=== PATIENT | female | born 1960 | race Hispanic/Latino ===

== ENCOUNTER 2022-05-06 15:43 | Emergency (ER) | payer BC ==
--- OUTSIDE RECORDS SUMMARY | 2022-05-06 15:47 | XMS REPORT | Continuity of Care Document ---
:1960 Author Organization [facility] t Address [address] [place] [address] Dr. Lemus. [address] [place] [address] Care Team Providers Name Role Phone Aung PAN, Melyssa Scott Primary Care Physician [phone] ESTHER RODRIGUEZ Attending Clinician Unavailable Aung PAN, Melyssa Scott Attending Clinician [phone] MARQUIS VILLA Attending Clinician Unavailable Vera Caldwell MA Attending Clinician Unavailable Lang Ventura MD Attending Clinician [phone] Yunior Hartmann MD Attending Clinician [phone] Lala Hatch MA Attending Clinician Unavailable Payers Payer Name Policy Type Policy Number Effective Date Expiration Date S analilia [id number] PPO [id number] 2018 00:00:00 Problems Condition Condition Condition Status Onset Resolution Last Treating Co mments Source Name Details Category Date Date Treatment Clinician Date Type 2 Type 2 Disease Active [facility]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 Family History Family Member Diagnosis Comments Start Date Stop Date Source Natural father Aneurysm [facility] Natural father COPD [facility] Natural father SENIOR TAX SPECIALIST Cancer [facility] Natural father Mitral valve [facility] Natural mother Diabetes [facility] Natural mother SENIOR TAX SPECIALIST Cancer [facility] Paternal grandfather Cancer [facility] Natural sister [facility] Social History Social Habit Start Date Stop Date Quantity Comments Source Exposure to Not sure [facility] SARS-CoV-2 Hospital (event) Alcohol intake 2021-06-26 2021-06-26 Current [facility] 00:00:00 00:00:00 non-drinker of Hospital alcohol (finding) Tobacco use and 2020-02-22 2020-02-22 Smokeless tobacco [facility] exposure 00:00:00 00:00:00 non-user Hospital Sex Assigned At [birth year] F [facility] 00:00:00 00:00:00 Hospital Smoking Status Start Date Stop Date Source Never smoked tobacco [facility] Medications Ordered Filled Start Stop Current Ordering Indication Dosage Frequency Signature Comments Components Source Medication Medication Date Date Medication? Clinician (SIG) Name Name metFORMIN Yes [id number] 1000mg Q.5D Take 2 Methodi XR 2-[address] (GLUCOPHAGE 00:00: (1,000 mg H ospita -XR) 500 mg 00 total) by l 24 hr mouth 2 tablet (two) times a day. levothyroxi Yes 112ug QD Take 1 Met hodi ne 1-[address] (SYNTHROID) 00:00: (112 mcg Ho spita 112 mcg 00 total) by l tablet mouth every morning. topiramate Yes 25mg QD Take 25 mg M ethodi (TOPAMAX) 1-[address] 25 MG 15:18: daily. Hospita tablet 32 l escitalopra Yes 5mg QD Take 5 mg M ethodi m (LEXAPRO) 1-[address] 5 MG tablet 15:17: daily. Hosp luis 38 l OLANZapine Yes 2.5mg QD Take 2.5 Me thodi (ZyPREXA) 1-[address] 2.5 MG 15:17: mouth Hospita tablet 38 nightly. l metFORMIN 2020-06- No [id number] TAKE 2 Methodi XR 2-15 02-[address] (GLUCOPHAGE 00:00: 00:00 MOUTH Hosp luis -XR) 500 mg 00 :00 TWICE A l 24 hr DAY tablet levothyroxi 2020-06- No TAKE 1 Met hodi ne 2-15 -[address] (SYNTHROID) 00:00: 00:00 MOUTH Hosp luis 112 mcg 00 :00 EVERY l tablet MORNING sodium,pota 2020-06 Yes [id number] Drink 1 Methodi ssium,mag 1-[address] sulfates 00:00: directed Hospi ta (Suprep 00 for dose 1 l Bowel Prep and 1 Kit) bottle as 17.5-3.13-1 directed .6 gram for dose recon soln 2. rosuvastati Yes [id number] 20mg QD Take 1 Methodi n (Crestor) 02-27 tablet (20 st 20 mg 00:00: mg total) Hospita tablet 00 by mouth l nightly. metFORMIN 2020- No [id number] 1000mg Q.5D Take 2 Methodi XR -27 12-[address] (GLUCOPHAGE 00:00: 00:00 (1,000 mg Hospita -XR) 500 mg 00 :00 total) by l 24 hr mouth 2 tablet (two) times a day. levothyroxi 2020- No 112ug QD Take 1 Me christophodi ne 02-27 12-[address] (SYNTHROID) 00:00: 00:00 (112 mcg H ospita 112 mcg 00 :00 total) by l tablet mouth every morning. levothyroxi Yes 125ug QD Take 1 Met donniei ne 8-[address] (SYNTHROID) 00:00: (125 mcg Ho spita 125 mcg 00 total) by l tablet mouth every morning. levothyroxi 2020- No 125ug QD Take 1 Me thodi ne - 08-[address] (SYNTHROID) 00:00: 00:00 (125 mcg H ospita 125 mcg 00 :00 total) by l tablet mouth every morning. escitalopra Yes 5mg QD Take 5 mg M ethodi m (LEXAPRO) 12-[address] 5 MG tablet 19:51: daily. Hosp luis 49 l OLANZapine Yes 2.5mg QD Take 2.5 Me thodi (ZyPREXA) 7-[address] 2.5 MG 19:51: mouth Hospita tablet 49 nightly. l cyanocobala Yes Take by Met lore eric, [address] vitamin 19:51: 1000mcg Hospita B-12, 49 drops l (Vitamin daily B-12) 1,000 mcg/mL drops benzonatate 2020- No [id number] 100mg Q.[id number] Take 1 Methodi (Tessalon 12-01 08- [id number] capsule st Perles) 100 00:00: 04:59 3D (100 mg Ho spita MG capsule 00 :00 total) by l mouth 3 (three) times a day as needed for cough for up to 30 days. rosuvastati Yes [id number] 20mg QD Take 1 Methodi n (Crestor) 6-23 tablet (20 st 20 mg 00:00: mg total) Hospita tablet 00 by mouth l nightly. metFORMIN Yes [id number] 1000mg QD Take 2 Methodi XR 5-[address] (GLUCOPHAGE 00:00: (1,000 mg H ospita -XR) 500 mg 00 total) by l 24 hr mouth tablet daily with dinner. metFORMIN 2020- No [id number] 1000mg QD Take 2 Methodi XR 5-20 05-[address] (GLUCOPHAGE 00:00: 00:00 (1,000 mg Hospita -XR) 500 mg 00 :00 total) by l 24 hr mouth tablet daily with dinner. metFORMIN 2020- No [id number] 500mg QD Take 1 Methodi XR 2-22 05-[address] (GLUCOPHAGE 00:00: 00:00 (500 mg Ho spita -XR) 500 mg 00 :00 total) by l 24 hr mouth tablet daily with breakfast. rosuvastati 2020- No [id number] 20mg QD Take 1 Methodi n (Crestor) 2-19 06-23 tablet (20 s t 20 mg 00:00: 00:00 mg total) Hospit a tablet 00 :00 by mouth l nightly. metFORMIN 202 [id number] 500mg QD Take 1 Methodi XR 07-[address] (GLUCOPHAGE 00:00: 00:00 (500 mg Ho spita -XR) 500 mg 00 :00 total) by l 24 hr mouth tablet daily with breakfast. levothyroxi 2019-06 125ug QD Take 1 Me thodi ne 2- 08-[address] (SYNTHROID) 00:00: 00:00 (125 mcg H ospita 125 mcg 00 :00 total) by l tablet mouth every morning. SITagliptin 2019-06 100mg QD Take 1 Me thodi (JANUVIA) 06-[address] 100 MG 00:00: 00:00 (100 mg Hospita tablet 00 :00 total) by l mouth daily. levothyroxi 112ug QD Take 1 Me thodi ne 02-21 12-[address] (SYNTHROID) 00:00: 00:00 (112 mcg H ospita 112 mcg 00 :00 total) by l tablet mouth every morning. metFORMIN No 500mg QD Take 1 Meth monica XR 02-[address] (GLUCOPHAGE 00:00: 00:00 (500 mg Ho spita -XR) 500 mg 00 :00 total) by l 24 hr mouth tablet daily with dinner. levothyroxi 2015-06- No TAKE 1 Met hodi ne 06-[address] (SYNTHROID, 00:00: 00:00 MOUTH Hosp luis LEVOXYL) 00 :00 EVERY DAY l 125 mcg AT 6AM tablet cabergoline 2015-06- No TAKE 1/2 M ethodi (DOSTINEX) 0-04 02-[address] 0.5 mg 00:00: 00:00 MOUTH Hospita tablet 00 :00 TWICE A l WEEK (SATURDAY AND SATURDAY) lithium 2015-06 Yes 900mg QD Take 900 Metho di (LITHOBID) 0-[address] 300 MG CR 00:00: mouth Hospita tablet 00 every l evening. lithium 2015-06 Yes 900mg QD Take 900 Metho di (LITHOBID) 0-[address] 300 MG CR 00:00: mouth Hospita tablet 00 every l evening. lamoTRIgine 2015-06- No 200mg QD Take 200 Methodi (LaMICtal) 003 09-[address] 200 MG 00:00: 00:00 mouth once Hosp luis tablet 00 :00 daily. l Immunizations Ordered Immunization Filled Immunization Date Status Commen ts Source Name Name ODIN WADSWORTHID-19 MRNA 2021-04-03 Completed [facility] VACCINATION 00:00:00 [facility] FLUCELVAX QUAD PF 2021-02-[address] 00:00:00 [facility] Zoster Vaccine 2020-11-15 Completed [facility] Recombinant 00:00:00 [facility] Zoster Vaccine 2020-09-15 Completed [facility] Recombinant 00:00:00 [facility] PFIZER COVID-19 MRNA 2020-08-25 Completed [facility] VACCINATION 00:00:00 [facility] PFIZER COVID-19 MRNA 2020-08-25 Completed [facility] VACCINATION 00:00:00 [facility] PFIZER COVID-19 MRNA 2020-08-04 Completed [facility] VACCINATION 00:00:00 [facility] PFIZER COVID-19 MRNA 2020-08-04 Completed [facility] VACCINATION 00:00:00 [facility] FLUCELVAX QUAD PF 2020-02-[address] 00:00:00 [facility] Tdap 2020-02-19 Completed [facility] 00:00:00 [facility] FLUCELVAX QUAD PF 2020-02-[address] 00:00:00 [facility] Tdap 2020-02-19 Completed [facility] 00:00:00 [facility] Vital Signs Vital Name Observation Time Observation Value Comments Source Systolic blood 2021-06-26 21:16:00 105 mm[Hg] Method ist [facility] pressure Diastolic blood 2021-06-26 21:16:00 63 mm[Hg] [facility] pressure Heart rate 2021-06-26 21:16:00 71 /min [facility] Body temperature 2021-06-26 21:16:00 37 Macy [facility] Respiratory rate 2021-06-26 21:16:00 20 /min [facility] Body height 2021-06-26 21:16:00 161.3 cm [facility] Body weight 2021-06-26 21:16:00 88.451 kg [facility] BMI 2021-06-26 21:16:00 34.00 kg/m2 [facility] Oxygen saturation in 2021-06-26 21:16:00 98 /min [facility] Arterial blood by Pulse oximetry Body height 2021-02-10 15:10:00 161.3 cm [facility] Body weight 2021-02-10 15:10:00 90.266 kg [facility] BMI 2021-02-10 15:10:00 34.70 kg/m2 [facility] Systolic blood 2021-02-08 13:55:00 116 mm[Hg] [facility] pressure Diastolic blood 2021-02-08 13:55:00 64 mm[Hg] [facility] pressure Heart rate 2021-02-08 13:55:00 99 /min [facility] Body temperature 2021-02-08 13:55:00 37.06 [facility] Oxygen saturation in 2021-02-08 13:55:00 72 /min [facility] Arterial blood by Pulse oximetry Respiratory rate 2020-10-20 19:08:00 18 /min [facility] Procedures Procedure Date / Time Performing Clinician Source Performed THYROID STIMULATING 2021-06-26 22:05:00 [facility] HORMONE Scott BASIC METABOLIC PANEL 2021-06-26 22:05:00 [facility] Scott HEMOGLOBIN A1C 2021-06-26 22:05:00 [facility] Scott LITHIUM LEVEL 2021-06-26 22:05:00 [facility] Scott CT CARDIAC CALCIUM SCORE 2021-02-16 18:57:00 [facility] Scott CT ABDOMEN PELVIS W 2021-02-10 15:02:00 [facility] CONTRAST Scott URINE CULTURE 2021-02-08 14:30:00 [facility] Scott C-REACTIVE PROTEIN 2021-02-08 14:30:00 [facility] Scott CBC WITH PLATELET AND 2021-02-08 14:30:00 [facility] DIFFERENTIAL Scott COMPREHENSIVE METABOLIC 2021-02-08 14:30:00 [facility] PANEL Scott URINALYSIS, AUTOMATED 2021-02-08 14:30:00 [facility] WITH MICROSCOPY Scott MICROSCOPIC EXAMINATION 2021-02-08 14:30:00 [facility] Scott POC URINALYSIS DIPSTICK 2021-02-08 14:25:00 [facility] Scott ECG 12-LEAD 2020-10-20 18:52:20 [facility] Scott HEMOGLOBIN A1C 2020-07-22 20:54:00 [facility] Scott BASIC METABOLIC PANEL 2020-07-22 20:54:00 [facility] Scott THYROID STIMULATING 2020-07-22 20:54:00 [facility] HORMONE Scott T4, FREE 2020-07-22 20:54:00 [facility] Scott LITHIUM LEVEL 2020-07-22 20:54:00 [facility] Scott THYROID STIMULATING 2020-05-11 14:40:00 [facility] HORMONE Scott ECG 12-LEAD 2020-02-22 04:23:10 [facility] CBC WITH PLATELET AND 2020-02-19 16:51:00 [facility] DIFFERENTIAL Scott COMPREHENSIVE METABOLIC 2020-02-19 16:51:00 [facility] PANEL Scott LIPID PANEL 2020-02-19 16:51:00 [facility] Scott URINALYSIS, AUTOMATED 2020-02-19 16:51:00 [facility] WITH MICROSCOPY Scott THYROID STIMULATING 2020-02-19 16:51:00 [facility] HORMONE Scott T4, FREE 2020-02-19 16:51:00 [facility] Scott T3, FREE 2020-02-19 16:51:00 [facility] Scott FERRITIN LEVEL 2020-02-19 16:51:00 [facility] Scott TOTAL IRON BINDING 2020-02-19 16:51:00 Melyssa Horan [facility] HEMOGLOBIN A1C 2020-02-19 16:51:00 [place] [facility] MICROSCOPIC EXAMINATION 2020-02-19 16:51:00 [place] [facility] Plan of Care Planned Activity Planned Date Details Comments Source Future Scheduled 2022-04-07 HEPATITIS B VACCINES Met [facility] Test 09:57:13 (1 of 3 - 3-dose series) [code = HEPATITIS B VACCINES (1 of 3 - 3-dose series)] Future Scheduled 2022-04-07 Pneumococcal Vaccine: [facility] Test 09:57:13 Pediatrics (0 to 5 Years) and At-Risk Patients (6 to 64 Years) (1 - PCV) [code = Pneumococcal Vaccine: Pediatrics (0 to 5 Years) and At-Risk Patients (6 to 64 Years) (1 - PCV)] Future Scheduled 2022-04-07 DIABETES: RETINAL EYE [facility] Test 09:57:13 EXAM [code = DIABETES: RETINAL EYE EXAM] Future Scheduled 2022-04-07 DIABETIC FOOT EXAM [facility] Test 09:57:13 [code = DIABETIC FOOT EXAM] Future Scheduled 2022-04-07 Hepatitis C screening [facility] Test 09:57:13 (procedure) [code = 185717964] Future Scheduled 2022-04-07 Screening for [facility] Test 09:57:13 malignant neoplasm of cervix (procedure) [code = 381136104] Future Scheduled 2022-04-07 BREAST CANCER [facility] Test 09:57:13 SCREENING [code = BREAST CANCER SCREENING] Future Scheduled 2022-04-07 COLONOSCOPY SCREENING [facility] Test 09:57:13 [code = COLONOSCOPY SCREENING] Future Scheduled 2022-04-07 COVID-19 VACCINE (4 - [facility] Test 09:57:13 Booster for Pfizer series) [code = COVID-19 VACCINE (4 - Booster for Pfizer series)] Future Scheduled 2022-04-07 INFLUENZA VACCINE Method [facility] Test 09:57:13 [code = INFLUENZA VACCINE] Future Scheduled 2022-04-07 [facility] 09:57:13 [code = URINE MICROALBUMIN] Future Scheduled DIABETES: RETINAL EYE [facility] Test EXAM [code = DIABETES: RETINAL EYE EXAM] Future Scheduled DIABETIC FOOT EXAM [facility] [code = DIABETIC FOOT EXAM] Future Scheduled URINE [facility]ALBUMIN [facility] Test [code = URINE MICROALBUMIN] Future Scheduled Hepatitis C screening [facility] Test (procedure) [code = 324039555] Future Scheduled Screening for [facility] Test malignant neoplasm of cervix (procedure) [code = 807453530] Future Scheduled BREAST CANCER [facility] Test SCREENING [code = BREAST CANCER SCREENING] Future Scheduled COLONOSCOPY SCREENING [facility] Test [code = COLONOSCOPY SCREENING] Future Scheduled SHINGLES VACCINES (#1) [facility] Test [code = SHINGLES VACCINES (#1)] Future Scheduled INFLUENZA VACCINE [facility] Test [code = INFLUENZA VACCINE] Encounters Start End Encounter Admission Attending Care Care Encounter Source Date/Time Date/Time Type Type Clinicians Facility Department ID 2021-02-16 Outpatient [facility] [id number] 7 [place] 10:55:42 [facility] 2022-01-29 2022-01-29 Refill [place], 1.2.840.1 [id number] Methodi 00:00:00 00:00:[address] [place] 3.430.2.7 Hospi ta .3.321013 l .8 2021-07-30 2021-07-30 Refill [place], 1.2.840.1 [id number] Methodi 00:00:00 00:00:[address] [place] 3.430.2.7 Hospi ta .3.631896 l .8 2021-06-27 2021-06-27 Telephone [place], 1.2.840.1 [id number] Methodi 00:00:00 00:00:[address] [place] 3.430.2.7 Hospi ta .3.855956 l .8 2021-06-27 2021-06-27 Orders [place], 1.2.840.1 [id number] Methodi 00:00:00 00:00:00 Only Melyssa 64397.1.[address] [place] 3.430.2.7 Hospi ta .3.983042 l .8 2021-06-26 2021-06-26 Lab [place], 1.2.840.1 [id number] Methodi 16:10:00 16:15:[address] [place] 3.430.2.7 Hospi ta .3.911103 l .8 2021-06-26 2021-06-26 Office Aung, 1.2.840.1 [id number] Methodi 15:15:00 15:59:47 Visit Melyssa 47810.1.[address] [place] 3.430.2.7 Hospi ta .3.233909 l .8 2021-06-26 2021-06-26 Travel 1.2.840.1 1.2.983.871 [id number] Methodi 00:00:00 00:00:[address] 3.430.2.7 0.2.7.3.698 Ho spita .3.603034 084.8 l .8 2021-06-26 2021-06-26 Outpatient AUNG, [facility] [id number] [place] 00:00:00 00:00:00 MELYSSA [address] 2021-06-26 2021-06-26 Outpatient AUNG, [facility] [id number] [place] 00:00:00 00:00:00 MELYSSA [address] 2021-06-16 2021-06-16 Telephone [place], 1.2.840.1 [id number] Methodi 00:00:00 00:00:[address] [place] 3.430.2.7 Hospi ta .3.868307 l .8 2021-06-14 2021-06-14 Refill Aung, 1.2.840.1 [id number] Methodi 00:00:00 00:00:[address] [place] 3.430.2.7 Hospi ta .3.114356 l .8 2021-05-17 2021-05-17 Refill [place], 1.2.840.1 [id number] Methodi 00:00:00 00:00:[address] [place] 3.430.2.7 Hospi ta .3.511438 l .8 2021-05-15 2021-05-15 Telephone Aung, 1.2.840.1 [id number] Methodi 00:00:00 00:00:[address] [place] 3.430.2.7 Hospi ta .3.207680 l .8 2021-05-15 2021-05-15 Telephone Aung, 1.2.840.1 [id number] Methodi 00:00:00 00:00:[address] [place] 3.430.2.7 Hospi ta .3.353466 l .8 2021-04-03 2021-04-03 Outpatient [facility] [id number] [place] 00:00:00 00:00:00 782 Method i 2021-03-10 2021-03-10 Outpatient AUNG, [facility] [id number] [place] 00:00:00 00:00:00 MELYSSA 971 Metho di 2021-03-08 2021-03-08 Outpatient AUNG, [facility] [id number] [place] 00:00:00 00:00:00 MELYSSA 001 Metho di 2021-03-06 2021-03-06 [facility] [id number] [place] 00:00:00 00:00:00 NEAKLYNKA 048 Meth monica 2021-02-28 2021-02-28 Outpatient AUNG, [facility] [id number] [place] 00:00:00 00:00:00 MELYSSA 781 Metho di 2021-02-22 2021-02-22 Outpatient AUNG, [facility] [id number] [place] 00:00:00 00:00:00 MELYSSA [address] 2021-02-22 2021-02-22 Outpatient AUNG, [facility] [id number] [place] 00:00:00 00:00:00 MELYSSA [address] 2021-02-15 2021-02-15 Refill [place], 1.2.840.1 [id number] Methodi 00:00:00 00:00:[address] [place] 3.430.2.7 Hospi ta .3.741851 l .8 2021-02-08 2021-02-08 Lab [place], 1.2.840.1 [id number] Methodi 09:29:45 09:34:[address] [place] 3.430.2.7 Hospi ta .3.800791 l .8 2021-02-08 2021-02-08 Office [place], 1.2.840.1 [id number] Methodi 08:34:34 09:25:30 Visit Melyssa 92145.1.[address] [place] 3.430.2.7 Hospi ta .3.067118 l .8 2021-02-07 2021-02-07 Travel 1.2.840.1 1.2.116.549 [id number] Methodi 00:00:00 00:00:[address] 3.430.2.7 0.2.7.3.698 Ho spita .3.583771 084.8 l .8 2021-01-23 2021-01-23 Orders Luke, 1.2.840.1 [id number] Methodi 00:00:00 00:00:00 Only Vera 65223.1.[address] 3.430.2.7 Hospit a .3.033228 l .8 2021-01-23 2021-01-23 Telephone Aung, 1.2.840.1 [id number] Methodi 00:00:00 00:00:[address] [place] 3.430.2.7 Hospi ta .3.538984 l .8 2021-01-12 2021-01-12 Telephone Aung, 1.2.840.1 [id number] Methodi 00:00:00 00:00:[address] [place] 3.430.2.7 Hospi ta .3.415835 l .8 2020-12-01 2020-12-01 Office [place], 1.2.840.1 [id number] Methodi 14:46:05 15:15:53 Visit Melyssa 87129.1.[address] [place] 3.430.2.7 Hospi ta .3.738814 l .8 2020-11-30 2020-11-30 Telephone [place], 1.2.840.1 [id number] Methodi 00:00:00 00:00:[address] [place] 3.430.2.7 Hospi ta .3.611470 l .8 2020-11-30 2020-11-30 Telephone [place], 1.2.840.1 [id number] Methodi 00:00:00 00:00:[address] [place] 3.430.2.7 Hospi ta .3.944698 l .8 2020-11-30 2020-11-30 Travel 1.2.840.1 1.2.411.998 [id number] [id number] Methodi 00:00:00 00:00:[address] 3.430.2.7 0.2.7.3.698 Ho spita .3.816238 084.8 l .8 2020-11-23 2020-11-23 Telephone Aung, 1.2.840.1 [id number] Methodi 00:00:00 00:00:[address] [place] 3.430.2.7 Hospi ta .3.019360 l .8 2020-11-11 2020-11-11 Travel 1.2.840.1 1.2.557.281 [id number] [id number] Methodi 00:00:00 00:00:[address] 3.430.2.7 0.2.7.3.698 Ho spita .3.636664 084.8 l .8 2020-10-20 2020-10-20 Office Aung, 1.2.840.1 [id number] Methodi 14:05:56 14:51:47 Visit Melyssa 57044.1.[address] [place] 3.430.2.7 Hospi ta .3.635358 l .8 2020-10-20 2020-10-20 Travel 1.2.840.1 1.2.040.505 [id number] Methodi 00:00:00 00:00:[address] 3.430.2.7 0.2.7.3.698 Ho spita .3.614718 084.8 l .8 2020-10-10 2020-10-10 Telephone Aung, 1.2.840.1 [id number] Methodi 00:00:00 00:00:[address] [place] 3.430.2.7 Hospi ta .3.188266 l .8 2020-09-29 2020-09-29 Telephone Aung, 1.2.840.1 [id number] Methodi 00:00:00 00:00:[address] [place] 3.430.2.7 Hospi ta .3.889318 l .8 2020-08-25 2020-08-25 Clinical Audrey, 1.2.840.1 [id number] Methodi 10:30:24 10:35:08 Support Lang 09826.1.[address] P. 3.430.2.7 Hospit a .3.291243 l .8 2020-08-25 2020-08-25 Travel 1.2.840.1 1.2.790.533 2630 [id number] Methodi 00:00:00 00:00:[address] 3.430.2.7 0.2.7.3.698 Ho spita .3.730060 084.8 l .8 2020-08-23 2020-08-23 Travel 1.2.840.1 1.2.493.276 [id number] Methodi 00:00:00 00:00:[address] 3.430.2.7 0.2.7.3.698 Ho spita .3.206673 084.8 l .8 2020-08-22 2020-08-22 Telephone Aung, 1.2.840.1 [id number] Methodi 00:00:00 00:00:[address] [place] 3.430.2.7 Hospi ta .3.593257 l .8 2020-08-04 2020-08-04 Clinical 1.2.840.1 [id number] Methodi 10:18:08 10:26:[address] 3.430.2.7 Hospit a .3.919830 l .8 2020-07-25 2020-07-25 Orders Aung, 1.2.840.1 [id number] 74863 Methodi 00:00:00 00:00:00 Only Melyssa 88059.1.[address] [place] 3.430.2.7 Hospi ta .3.295179 l .8 2020-07-24 2020-07-24 Refill Aung, 1.2.840.1 [id number] 84690 Methodi 00:00:00 00:00:[address] [place] 3.430.2.7 Hospi ta .3.829968 l .8 2020-07-22 2020-07-22 Lab [place], 1.2.840.1 [id number] 95615 Methodi 14:54:43 14:59:[address] [place] 3.430.2.7 Hospi ta .3.785461 l .8 2020-07-22 2020-07-22 Office Aung, 1.2.840.1 [id number] 90261 Methodi 13:44:35 14:51:40 Visit Melyssa 31384.1.[address] [place] 3.430.2.7 Hospi ta .3.269272 l .8 2020-07-22 2020-07-22 Travel 1.2.840.1 1.2.548.716 3510 117603 Methodi 00:00:00 00:00:[address] 3.430.2.7 0.2.7.3.698 Ho spita .3.509268 084.8 l .8 2020-05-12 2020-05-12 Refill Aung, 1.2.840.1 [id number] 21000 09242 Methodi 00:00:00 00:00:[address] [place] 3.430.2.7 Hospi ta .3.617148 l .8 2020-05-12 2020-05-12 [facility] [id number] 78133 Methodi 00:00:00 00:00:00 Only Melyssa 00987.1.[address] [place] 3.430.2.7 Hospi ta .3.842973 l .8 2020-05-11 2020-05-11 Lab [place], 1.2.840.1 [id number] 62259 Methodi 08:40:07 08:45:[address] [place] 3.430.2.7 Hospi ta .3.657971 l .8 2020-05-03 2020-05-03 Refill [place], 1.2.840.1 [id number] Methodi 00:00:00 00:00:[address] [place] 3.430.2.7 Hospi ta .3.668506 l .8 2020-05-03 2020-05-03 Telephone Bethany, 1.2.840.1 [id number] Methodi 00:00:00 00:00:[address] [place] 3.430.2.7 Hospi ta .3.852733 l .8 2020-05-01 2020-05-01 Refill Bethany, 1.2.840.1 [id number] 01703 Methodi 00:00:00 00:00:[address] [place] 3.430.2.7 Hospi ta .3.213918 l .8 2020-04-21 2020-04-21 Office Bethany, 1.2.840.1 [id number] 71576 75346 Methodi 14:18:05 14:45:08 Visit Melyssa 44092.1.[address] [place] 3.430.2.7 Hospi ta .3.439674 l .8 2020-04-21 2020-04-21 Travel 1.2.840.1 1.2.658.740 5472 [id number] Methodi 00:00:00 00:00:[address] 3.430.2.7 0.2.7.3.698 Ho spita .3.725207 084.8 l .8 2020-03-25 2020-03-25 Travel 1.2.840.1 1.2.214.343 5715 990015 Methodi 00:00:00 00:00:[address] 3.430.2.7 0.2.7.3.698 Ho spita .3.158990 084.8 l .8 2020-03-04 2020-03-04 Telemedici Bethany, 1.2.840.1 [id number] Methodi 14:01:44 14:27:55 ne Melyssa 78712.1.[address] [place] 3.430.2.7 Hospi ta .3.759480 l .8 2020-03-03 2020-03-03 Travel 1.2.840.1 1.2.716.494 2757 [id number] Methodi 00:00:00 00:00:[address] 3.430.2.7 0.2.7.3.698 Ho spita .3.403454 084.8 l .8 2020-03-03 2020-03-03 Telephone Bethany, 1.2.840.1 [id number] Methodi 00:00:00 00:00:[address] [place] 3.430.2.7 Hospi ta .3.130368 l .8 2020-02-29 2020-02-29 Telephone Aung, 1.2.840.1 [id number] Methodi 00:00:00 00:00:[address] [place] 3.430.2.7 Hospi ta .3.788676 l .8 2020-02-26 2020-02-26 Telephone Aung, 1.2.840.1 [id number] [id number] Methodi 00:00:00 00:00:[address] [place] 3.430.2.7 Hospi ta .3.786567 l .8 2020-02-25 2020-02-25 Travel 1.2.840.1 1.2.942.544 4879 [id number] Methodi 00:00:00 00:00:[address] 3.430.2.7 0.2.7.3.698 Ho spita .3.545416 084.8 l .8 2020-02-24 2020-02-24 Travel 1.2.840.1 1.2.586.178 4695 [id number] Methodi 00:00:00 00:00:[address] 3.430.2.7 0.2.7.3.698 Ho spita .3.794087 084.8 l .8 2020-02-22 2020-02-22 [facility] 1.2.840.1 [id number] 21 [id number] Methodi 11:14:30 12:47:41 Visit aYunior 17842.1.[address] 3.430.2.7 Hospit a .3.721348 l .8 2020-02-22 2020-02-22 [facility]ly [facility], 1.2.840.1 [id number] Methodi 00:00:00 00:00:00 Only Melyssa 34013.1.[address] [place] 3.430.2.7 Hospi ta .3.149606 l .8 2020-02-22 2020-02-22 Travel 1.2.840.1 1.2.309.966 1950 [id number] Methodi 00:00:00 00:00:[address] 3.430.2.7 0.2.7.3.698 Ho spita .3.540439 084.8 l .8 2020-02-19 2020-02-19 Lab [place]any, 1.2.840.1 [id number] 65215 Methodi 11:45:13 11:50:[address] [place] 3.430.2.7 Hospi ta .3.120606 l .8 2020-02-19 2020-02-19 Office Bethany, 1.2.840.1 [id number] Methodi 10:35:46 11:42:45 Visit Melyssa 11034.1.[address] [place] 3.430.2.7 Hospi ta .3.699234 l .8 2020-02-19 2020-02-19 Travel 1.2.840.1 1.2.471.897 7109 [id number] Methodi 00:00:00 00:00:[address] 3.430.2.7 0.2.7.3.698 Ho spita .3.392420 084.8 l .8 2020-02-19 2020-02-19 Telephone Lizbet Hatch.2.840.1 [id number] 2100 [id number] Methodi 00:00:00 00:00:[address] 3.430.2.7 Hospit a .3.297945 l .8 Results Test Description Test Time Test Comments Results Result Comments Source Thyroid stimulating hormone 2021-06-27 14:11:00 Test Item Value Reference Range Interpretation Comme nts TSH (test code = See_Comment [Automated message] The 3016-3) system which ge nerated this result transmit mark reference range: 0.450 - 4.500 uIU/mL. The reference r jennyfer was not used to interpr et this result as leydi l/abnormal. MIA (test code = Performed at: ) [facility] [id number] Director: Romulo Gonzalez MD, Phone: [phone] [facility] [id number] 13:07:00 Test Item Value Reference Range Interpretation Comments [place] (test 0.7 mmol/L 0.5-1.2 Plasma concent ration code = 73323-6) of 0.5 - 0.8 mmol/L are advised for long-termuse; concentrations of up to 1.2 mmol/L m ay be necessary durin gacute treatment. Det ection Limit = 0.1 <0. 1 indicates None Detected MIA (test code Performed at: MIA) [facility] [address] [id number] Director: Romulo Gonzalez MD, Phone: [phone] [facility] [id number] 12:09:00 Test Item Value Reference Interpretation Comments Range Glucose (test code = 103 mg/dL 65-99 H 2345-7) BUN (test code = 20 mg/dL 8-27 3094-0) Creatinine (test 0.84 mg/dL 0.57-1.00 code = 2160-0) EGFR Non-Afr. 75 mL/min/1.73 See_Comment [Automated message] Iraqi (test code The syst em which = 2775) generated this result transmit mark reference range : >=59. The refer ence range was not u sed to interpret th is result as normal/abnormal . EGFR 87 mL/min/1.73 See_Comment In accordan ce with Iraqi (test code recommen dations from = 2774) the NKF-ASN Tas k force, [facility] is in the process of updating its eG FR calculation to the 2020 CKD-EPI creatinine equa tion that estimates kidney function without a race variable. [Auto mated message] The sy stem which generated this result transmit mark reference range : >=59. The refer ence range was not u sed to interpret th is result as normal/abnormal . BUN/creatinine ratio 12-28 (test code = 3097-3) Sodium (test code = 140 mmol/L 672-876 6165-2) Potassium (test code 4.0 mmol/L 3.5-5.2 = 2823-3) Chloride (test code 105 mmol/L 96-106 = 2075-0) CO2 (test code = 23 mmol/L 20-29 2027-9) Calcium (test code = 10.9 mg/dL 8.7-10.3 H 29523-1) MIA (test code = Performed at: MIA) - [facility] [address] [id number] Director: Romulo Gonzalez MD, Phone: [phone] Lab Interpretation Abnormal (test code = 79028-2) [facility] [id number] 10:07:00 Test Item Value Reference Range Interpretation Comments Hemoglobin A1C (test 6.9 % 4.8-5.6 H Predia betes: code = 4548-4) 5.7 - 6.4 Diabetes: >6.4 Glycemic control for adults with diabetes: <7.0 MIA (test code = MIA) Performed at: - [facility] [address] [id number] Director: Romulo Gonzalez MD, Phone: [phone] Lab Interpretation Abnormal (test code = 90900-0) [facility] [id number] 06:07:00 Test Item Value Reference Range Interpretation Comments Urine culture (test No growth code = 630-4) MIA (test code = MIA) Performed at: - [facility] [id number] Director: Romulo Gonzalez MD, Phone: [phone] [facility]-reactive [id number] 14:51:00 Test Item Value Reference Range Interpretation Comments CRP (test code = 6 mg/L 0-10 1988-5) MIA (test code = Performed at: - MIA) [facility] [address] [id number] Director: Romulo Gonzalez MD, Phone: [phone] [facility] HospitalUrinalysis, automated with [id number] 14:11:00 Test Item Value Reference Range Interpretation Comments Specific gravity, 1.005-1.030 urine (test code = 2965-2) pH, urine (test code 5.0-7.5 = 5803-2) Color, UA (test code Yellow Yellow = 5778-6) Appearance (test code Clear Clear = 5767-9) WBC esterase, urine Trace Negative A (test code = 5799-2) Protein, UA (test Negative Negative/Trace code = 03877-2) Glucose, urine (test Negative Negative code = 2349-9) Ketones, UA (test Negative Negative code = 2514-8) Occult blood, urine Negative Negative (test code = 5794-3) Bilirubin, UA (test Negative Negative code = 5770-3) Urobilinogen, UA 0.2 mg/dL 0.2-1.0 (test code = 04980-8) Nitrite, UA (test Negative Negative code = 5802-4) Microscopic See below: Microscopic was examination (test indicated and was code = 58178-9) performed. MIA (test code = MIA) Performed at: - [facility] [id number] Director: Romulo Gonzalez MD, Phone: [phone] Lab Interpretation Abnormal (test code = 24237-3) [facility] [id number] 14:11:00 Test Item Value Reference Range Interpretation Comments WBC, UA (test code None seen See_Comment [Automat ed = 5821-4) message] The system which generated this result transmit mark reference range : 0 - 5 /hpf. The reference range was not used to interpret this result as normal/abnormal . RBC, UA (test code None seen See_Comment [Automat ed = 17892-3) message] The system which generated this result transmit mark reference range : 0 - 2 /hpf. The reference range was not used to interpret this result as normal/abnormal . Epithelial cells 0-10 See_Comment [Automated (non renal) (test message] T he code = 5787-7) system which generated this result transmit mark reference range : 0 - 10 /hpf. The reference range was not used to interpret this result as normal/abnormal . Casts (test code = None seen None seen /lpf 85709-2) Bacteria, UA (test None seen None seen/Few code = 5769-5) MIA (test code = Performed at: MIA) [facility] [address] [id number] Director: Romulo Gonzalez MD, Phone: [phone] [facility]Com[facility] metabolic [id number] 12:16:00 Test Item Value Reference Interpretation Comments Range Glucose (test code = 121 mg/dL 65-99 H 2345-7) BUN (test code = 8 mg/dL 8-27 3094-0) Creatinine (test 0.73 mg/dL 0.57-1.00 code = 2160-0) EGFR Non-Afr. 90 mL/min/1.73 >59 Iraqi (test code = 2775) EGFR 104 mL/min/1.73 >59 [facility] cu rrently Iraqi (test code reports eGFR in = 2774) compliance with the current recommendations of the [employer]. Lab kareem will update reporting as ne w guidelines are published from the NKF-ASN Task fo rce. BUN/creatinine ratio 12-28 L (test code = 3097-3) Sodium (test code = 144 mmol/L 117-052 2650-2) Potassium (test code 4.3 mmol/L 3.5-5.2 = 2823-3) Chloride (test code 109 mmol/L 96-106 H = 2075-0) CO2 (test code = 24 mmol/L 20-29 2028-9) Calcium (test code = 10.2 mg/dL 8.7-10.3 39161-1) Protein (test code = 6.8 g/dL 6.0-8.5 2885-2) Albumin, S (test 4.4 g/dL 3.8-4.9 code = 1751-7) Globulin, total 2.4 g/dL 1.5-4.5 (test code = 11869-4) Albumin/globulin 1.2-2.2 ratio (test code = 1759-0) Total bilirubin 0.5 mg/dL 0.0-1.2 (test code = 1975-2) Alkaline phosphatase See_Comment H Effec tive (test code = 6768-6) er 2020 Alkaline Phosphatase reference inter fauzia will be shyanne chan to: Age Male Female 0 - 5 days 47 - 127 47 - 127 6 - 10 day s 29 - 242 29 - 242 11 - 20 days 109 - 3 57 109 - 357 21 - 30 days 94 - 494 9 4 - 494 1 - 2 month s 149 - 539 149 - 539 3 - 6 months 131 - 452 131 - 452 7 - 1 1 months 117 - 40 1 117 - 401 12 months - 6 years 158 - 369 158 - 369 7 - 12 ye ars 150 - 409 150 - 409 13 years 156 - 435 78 - 227 14 yea rs 114 - 375 64 - 161 15 years 88 - 2 79 56 - 134 16 years 74 - 207 51 - 121 17 years 63 - 161 47 - 113 18 - 20 yea rs 51 - 125 42 - 106 >20 years 44 - 121 44 - 121 [Automated message] The sy stem which generated this result transmit mark reference range : 48 - 121 IU/L. The reference range was not used to interpret this result as normal/abnormal . AST (test code = See_Comment [Automated message] 1920-8) The system [employer] generated this result transmit mark reference range : 0 - 40 IU/L. The reference range was not used to interpret this result as normal/abnormal . ALT (test code = See_Comment [Automated message] 1742-6) The system [employer] h generated this result transmit mark reference range : 0 - 32 IU/L. The reference range was not used to interpret this result as normal/abnormal . MIA (test code = Performed at: 01 MIA) - [facility] [address] [place], [place] [id number] Director: Romulo Gonzalez MD, Phone: [phone] Lab Interpretation Abnormal (test code = 25440-7) [facility] with platelet and [id number] 11:11:00 Test Item Value Reference Range Interpretation Comments WBC (test code = See_Comment [Automated 6690-2) message] The system which generated this result transmitted reference range : 3.4 - 10.8 x10E3/uL. The reference range was not used to interpret this result as normal/abnormal . RBC (test code = See_Comment [Automated 789-8) message] The system which generated this result transmitted reference range : 3.77 - 5.28 x10E6/uL. The reference range was not used to interpret this result as normal/abnormal . HGB (test code = 13.7 g/dL 11.1-15.9 718-7) HCT (test code = 41.6 % 34.0-46.6 4544-3) MCV (test code = 98 fL 79-97 H 787-2) MCH (test code = 32.2 pg 26.6-33.0 785-6) MCHC (test code = 32.9 g/dL 31.5-35.7 786-4) RDW (test code = 12.3 % 11.7-15.4 788-0) Platelet count (test See_Comment [Autom ated code = 777-3) message] The system which generated this result transmitted reference range : 150 - 450 x10E3/uL. The reference range was not used to interpret this result as normal/abnormal . Neutrophils (test 61 % Not Estab. code = 770-8) Lymphocytes (test 29 % Not Estab. code = 736-9) Monocytes (test code 6 % Not Estab. = 5905-5) Eosinophils (test 3 % Not Estab. code = 713-8) Basophils (test code 1 % Not Estab. = 706-2) Neutrophils, absolute See_Comment [Auto mated (test code = 751-8) message] The system which generated this result transmitted reference range : 1.4 - 7.0 x10E3/uL. The reference range was not used to interpret this result as normal/abnormal . Lymphocytes, absolute See_Comment [Auto mated (test code = 731-0) message] The system which generated this result transmitted reference range : 0.7 - 3.1 x10E3/uL. The reference range was not used to interpret this result as normal/abnormal . Monocytes, absolute See_Comment [Automa mark (test code = 742-7) message] The system which generated this result transmitted reference range : 0.1 - 0.9 x10E3/uL. The reference range was not used to interpret this result as normal/abnormal . Eosinophils, absolute See_Comment [Auto mated (test code = 711-2) message] The system which generated this result transmitted reference range : 0.0 - 0.4 x10E3/uL. The reference range was not used to interpret this result as normal/abnormal . Basophils, absolute See_Comment [Automa mark (test code = 704-7) message] The system which generated this result transmitted reference range : 0.0 - 0.2 x10E3/uL. The reference range was not used to interpret this result as normal/abnormal . Immature granulocytes 0 % Not Estab. (test code = 40631-6) Immature grans (abs) See_Comment [Autom ated (test code = 88058-4) messag e] The system which generated this result transmitted reference range : 0.0 - 0.1 x10E3/uL. The reference range was not used to interpret this result as normal/abnormal . MIA (test code = MIA) Performed at: [address] [place] [id number] Director: Romulo Gonzalez MD, Phone: [phone] Lab Interpretation Abnormal (test code = 93382-9) [facility] urinalysis [id number] 14:25:00 Test Item Value Reference Range Interpretation Comments Color urine, POC (test Bright Yellow code = 9107412) Clarity urine, POC Clear (test code = 0444974) Glucose urine, POC Negative Negative (test code = 9926975) Bilirubin urine, POC Negative Negative (test code = 2259689) Ketones urine, POC Negative Negative (test code = 6443520) Specific gravity 1.005-1.030 urine, POC (test code = 6079339) Blood urine, POC (test Negative Negative code = 7028593) pH urine, POC (test See_Comment [Automa mark code = 9634968) message] The system which generated this result transmit mark reference range : 5.0, 5.5, 6.0, 6.5, 7.0, 7.5, 8.0, 8.5. The reference range was not used to interpret this result as normal/abnormal . Protein urine, POC Negative Negative (test code = 2938195) Urobilinogen urine, <2.0 <2.0 POC (test code = 5414952) Nitrite urine, POC Negative Negative (test code = 6157383) Leukocyte esterase Trace Negative A urine, POC (test code = 6076276) Lab Interpretation Abnormal (test code = 02117-6) [facility] 12 [id number] 17:15:41 Test Item Value Reference Range Interpretation Comments Ventricular rate (test code = 253) Atrial rate (test code = 255) OH interval (test code = 266) QRSD interval (test code = 260) QT interval (test code = 264) QTC interval (test code = 265) P axis 1 (test code = 267) QRS axis 1 (test code = 268) T wave axis (test code = 270) EKG impression (test Normal sinus code = 273) rhythm-Nonspecific T wave abnormality-Abnormal ECG-In automated comparison with ECG of 21-FEB-2020 23:23,-No significant change was found- [facility] metabolic [id number] 15:08:00 Test Item Value Reference Range Interpretation Comments Glucose (test code = 120 mg/dL 65-99 H 2345-7) BUN (test code = 3094-0) 12 mg/dL 8-27 Creatinine (test code = 0.85 mg/dL 0.57-1.00 2160-0) EGFR Non-Afr. Iraqi 75 mL/min/1.73 >59 (test code = 2775) EGFR 86 mL/min/1.73 >59 (test code = 2774) BUN/creatinine ratio 12-28 (test code = 3097-3) Sodium (test code = 142 mmol/L 962-922 6042-2) Potassium (test code = 4.3 mmol/L 3.5-5.2 2823-3) Chloride (test code = 105 mmol/L 96-106 5-0) CO2 (test code = 2027-) 25 mmol/L 20-29 Calcium (test code = 10.3 mg/dL 8.7-10.3 38952-8) MIA (test code = MIA) Performed at: [address] [id number] Director: Romulo Gonzalez MD, Phone: [phone] Lab Interpretation (test Abnormal code = 53615-3) [facility] [id number] 15:08:00 Test Item Value Reference Range Interpretation Comments [place] (test 0.6 mmol/L 0.6-1.2 Detection Hernandez it = code = 66275-7) 0.1 <0.1 indicates None Detected MIA (test code = Performed at: MIA) [address] [id number] Director: Romulo Gonzalez MD, Phone: [phone] [facility] [id number] 15:08:00 Test Item Value Reference Range Interpretation Comments Hemoglobin A1C (test 6.5 % 4.8-5.6 H Predia betes: code = 4548-4) 5.7 - 6.4 Diabetes: >6.4 Glycemic control for adults with diabetes: <7.0 MIA (test code = MIA) Performed at: [address] [id number] Director: Romulo Gonzalez MD, Phone: [phone] Lab Interpretation Abnormal (test code = 30480-5) [facility] HospitalT4, [id number] 15:08:00 Test Item Value Reference Range Interpretation Comments T4, free (test code 1.21 ng/dL 0.82-1.77 = 3024-7) MIA (test code = Performed at: MIA) [address] [id number] Director: Romulo Gonzalez MD, Phone: [phone] [facility] HospitalThyroid stimulating [id number] 15:08:00 Test Item Value Reference Range Interpretation Comments TSH (test code See_Comment [Automated m essage] = 56060-0) The system [employer] h generated this result transmit mark reference range : 0.450 - 4.500 uIU/mL. The reference range was not used to interpret this result as normal/abnormal . MIA (test code Performed at: - = MIA) [address] [id number] Director: Romulo Gonzalez MD, Phone: [phone] [facility] HospitalTotal iron binding [id number] 13:14:00 Test Item Value Reference Range Interpretation Comments Iron binding capacity 330 ug/dL 250-450 (test code = 2500-7) Unsaturated iron 202 ug/dL 131-425 binding capacity (test code = 2501-5) Iron level (test code = 128 ug/dL 27-159 2498-4) Iron saturation (test 39 % 15-55 code = 2502-3) MIA (test code = MIA) Performed at: [address] [id number] Director: Romulo Gonzalez MD, Phone: [phone] [facility] HospitalFerritin [id number] 10:08:00 Test Item Value Reference Range Interpretation Comments Ferritin level (test 102 ng/mL 15-150 code = 2276-4) MIA (test code = MIA) Performed at: [address] [id number] Director: Romulo Gonzalez MD, Phone: [phone] [facility] HospitalT3, [id number] 10:08:00 Test Item Value Reference Range Interpretation Comments T3, free (test code 3.1 pg/mL 2.0-4.4 = 3051-0) MIA (test code = Performed at: MIA) [address] [id number] Director: Romulo Gonzalez MD, Phone: [phone] [facility] HospitalLipid [id number] 09:07:00 Test Item Value Reference Range Interpretation Comments Cholesterol (test code = 223 mg/dL 100-199 H 2093-3) Triglycerides (test code 173 mg/dL 0-149 H = 2571-8) HDL cholesterol (test 49 mg/dL >39 code = 2085-9) VLDL cholesterol wang 31 mg/dL 5-40 (test code = 93758-9) LDL Chol Calc ([facility]) (test 143 mg/dL 0-99 H code = 47178-2) Non-HDL cholesterol (test 174 mg/dL 0-129 H code = 73233-6) MIA (test code = MIA) Performed at: - [facility] [id number] Director: Romulo Gonzalez MD, Phone: [phone] Lab Interpretation (test Abnormal code = 90104-3) [facility]
[2022-05-06 16:32] LABS: Absolute Lymphocytes (CBC) 2.7 K/uL (0.7-4.9); Hematocrit 39.2 % (36.0-45.0); Lymphocytes % 25.2 % (15.3-44.8); MCV 96.2 fL (80-100); MPV 8.9 fL (7.6-11.3); RBC Red Blood Cell Count 4.08 M/uL (3.86-4.86)
[2022-05-06 16:50] LABS: Potassium 3.7 mmol/L (3.5-5.1); Troponin High Sensitivity 6.5 pg/mL (<58.9)
--- NOTE | 2022-05-06 18:33 | ER ---
Nurse's Notes [facility] Name: Nai Watkins Age: 62 yrs Sex: Female : 1960 Arrival Date: 05/06/2022 Time: 15:45 Bed 24 Private MD: Diagnosis: Pain in left arm Presentation: 05/06 15:51 Chief complaint: Patient states: Headache, pain radiates to left arm X 3 days. ld1 Coronavirus screen: At this time, the client does not indicate any symptoms associated with coronavirus-19. Ebola Screen: No symptoms or risks identified at this time. Initial Sepsis Screen: Does the patient meet any 2 criteria? No. Patient's initial sepsis screen is negative. Does the patient have a suspected source of infection? No. Patient's initial sepsis screen is negative. Risk Assessment: Do you want to hurt yourself or someone else? Patient reports no desire to harm self or others. Onset of symptoms was May 06, 2022. 15:51 Method Of Arrival: Ambulatory ld1 15:51 Acuity: JULES 3 ld1 Triage Assessment: 15:52 Headache History: Denies prior headaches. General: Appears in no apparent distress. ld1 comfortable, Behavior is calm, cooperative, appropriate for age. Pain: Complains of pain in face and left arm Pain radiates to left arm Pain currently is 7 out of 10 on a pain scale. Quality of pain is described as sharp, shooting, throbbing, Pain began suddenly, Is continuous. EENT: No signs and/or symptoms were reported regarding the EENT system. Neuro: Level of Consciousness is awake, alert, obeys commands, Oriented to person, place, time, situation, Appropriate for age. Cardiovascular: Capillary refill < 3 seconds Patient's skin is warm and dry. Respiratory: Airway is patent Respiratory effort is even, unlabored. GI: Abdomen is round non-distended. : No signs and/or symptoms were reported regarding the genitourinary system. Derm: No signs and/or symptoms reported regarding the dermatologic system. Musculoskeletal: No signs and/or symptoms reported regarding the musculoskeletal system. Historical: - Allergies: 15:52 No Known Allergies; ld1 - PMHx: 15:52 Diabetes mellitus; Hyperthyroidism; Depressive disorder; Bipolar disorder; ld1 Hypercholesterolemia; - PSHx: 15:52 Thyroidectomy; Lumpectomy of breast; ld1 - Immunization history:: Adult Immunizations up to date, Client reports having NOT received the Covid vaccine. - Social history:: Smoking status: Patient denies any tobacco usage or history of. Patient/guardian denies using alcohol. Screenin:25 Abuse screen: Denies threats or abuse. Denies injuries from another. Nutritional hb screening: No deficits noted. Tuberculosis screening: No symptoms or risk factors identified. Fall Risk None identified. Assessment: 16:24 General: Appears in no apparent distress. Behavior is calm, cooperative. Pain: Pain hb currently is 7 out of 10 on a pain scale. Neuro: Level of Consciousness is awake, alert, obeys commands, Oriented to person, place, time, situation. Cardiovascular: Patient's skin is warm and dry. Respiratory: Respiratory effort is even, unlabored, Respiratory pattern is regular, symmetrical. GI: No signs and/or symptoms were reported involving the gastrointestinal system. : No signs and/or symptoms were reported regarding the genitourinary system. EENT: No signs and/or symptoms were reported regarding the EENT system. Derm: Skin is pink, warm \T\ dry. Musculoskeletal: Reports left arm pain, intermittent mid back pain. 17:43 Reassessment: Patient appears in no apparent distress at this time. Patient and/or hb family updated on plan of care and expected duration. Pain level reassessed. Patient is alert, oriented x 3, equal unlabored respirations, skin warm/dry/pink. Vital Signs: 15:51 BP 149 / 79; Pulse 70; Resp 18; Temp 97.9(O); Pulse Ox 99% on R/A; Weight 81.65 kg; ld1 Height 5 ft. 4 in. (162.56 cm); Pain 7/10; 17:48 BP 126 / 76; Pulse 74; Resp 16; Pulse Ox 100% on R/A; hb 15:51 Body Mass Index 30.90 (81.65 kg, 162.56 cm) ld1 ED Course: 15:45 Patient arrived in ED. ld1 15:51 Don Arceo PA is PHCP. [facility] 15:51 Gwyn Wood MD is Attending Physician. [facility] 15:52 Triage completed. ld1 15:52 Arm band placed on right wrist. ld1 16:21 Inserted saline lock: 20 gauge in right antecubital area, using aseptic technique. hb Blood collected. 16:25 Patient has correct armband on for positive identification. hb 16:37 Shannan Jalloh, RN is Primary Nurse. hb 18:37 US Extremity Venous Unilateral Ltd In Process Unspecified. EDMS Administered Medications: No medications were administered Medication: 16:24 VIS not applicable for this client. hb Outcome: 18:33 Discharge ordered by . karthik 18:39 Patient left the ED. hb Signatures: Dispatcher [employer] EDMS Don Arceo PA PA Shannan Asif, RN RN Roselyn Nicholson RN RN ld1
--- NOTE | 2022-05-06 18:33 | EDPHYS ---
Physician Documentation [facility] Name: Nai Watkins Age: 62 yrs Sex: Female : 1960 Arrival Date: 05/06/2022 Time: 15:45 Bed 24 Private MD: BEE Physician Gwyn Wood HPI: 05/06 16:58 This 62 yrs old Female presents to ER via Ambulatory with complaints of Arm jmm Pain, Headache. 16:58 The patient or guardian complains of pain. Onset: The symptoms/episode began/occurred jmm gradually, 4 day(s) ago. This is a 62-year-old female with history of diabetes mellitus, hypertension, depression, bipolar that presents emerged part with complaints of left arm pain. Denies chest pain but is concerned that the pain could be from cardiac. Patient denies any injury to the arm. Denies swelling.. Historical: - Allergies: 15:52 No Known Allergies; ld1 - PMHx: 15:52 Diabetes mellitus; Hyperthyroidism; Depressive disorder; Bipolar disorder; ld1 Hypercholesterolemia; - PSHx: 15:52 Thyroidectomy; Lumpectomy of breast; ld1 - Immunization history:: Adult Immunizations up to date, Client reports having NOT received the Covid vaccine. - Social history:: Smoking status: Patient denies any tobacco usage or history of. Patient/guardian denies using alcohol. ROS: 16:59 Constitutional: Negative for fever, chills, and weight loss, Cardiovascular: Negative jmm for chest pain, palpitations, and edema, Respiratory: Negative for shortness of breath, cough, wheezing, and pleuritic chest pain. 16:59 MS/extremity: Positive for pain. 16:59 All other systems are negative. Exam: 16:59 Constitutional: This is a well developed, well nourished patient who is awake, alert, jmm and in no acute distress. Head/Face: atraumatic. Eyes: EOMI, no conjunctival erythema appreciated ENT: Moist Mucus Membranes Neck: Trachea midline, Supple Chest/axilla: Normal chest wall appearance and motion. Cardiovascular: Regular rate and rhythm. No edema appreciated Respiratory: Normal respirations, no respiratory distress appreciated Abdomen/GI: Non distended Back: Normal ROM Skin: General appearance color normal 16:59 Musculoskeletal/extremity: ROM: intact in all extremities. 16:59 Skin: Appearance: Color: normal in color. 16:59 Neuro: Orientation: is normal, Mentation: is normal, Memory: is normal. 16:59 Psych: Behavior/mood is pleasant, cooperative. Vital Signs: 15:51 BP 149 / 79; Pulse 70; Resp 18; Temp 97.9(O); Pulse Ox 99% on R/A; Weight 81.65 kg; ld1 Height 5 ft. 4 in. (162.56 cm); Pain 7/10; 17:48 BP 126 / 76; Pulse 74; Resp 16; Pulse Ox 100% on R/A; hb 15:51 Body Mass Index 30.90 (81.65 kg, 162.56 cm) ld1 MDM: 15:59 Patient medically screened. [facility] 18:32 Data reviewed: vital signs, nurses notes. Counseling: I had a detailed discussion with karthik the patient and/or guardian regarding: the historical points, exam findings, and any diagnostic results supporting the discharge/admit diagnosis, radiology results, the need for outpatient follow up, to return to the emergency department if symptoms worsen or persist or if there are any questions or concerns that arise at home. 05/06 16:00 Order name: Basic Metabolic Panel; Complete Time: 16:58 [facility] 05/06 16:00 Order name: CBC with Diff; Complete Time: 16:58 [facility] 05/06 16:00 Order name: Troponin HS; Complete Time: 16:58 [facility] 05/06 16:00 Order name: EKG; Complete Time: 16:00 [facility] 05/06 16:00 Order name: Cardiac monitoring; Complete Time: 16:24 [facility] 05/06 17:15 Order name: US Extremity Venous Unilateral Ltd [facility] 05/06 16:00 Order name: EKG - Nurse/Tech; Complete Time: 16:24 [facility] 05/06 16:00 Order name: IV Saline Lock; Complete Time: 16:24 [facility] 05/06 16:00 Order name: Labs collected and sent; Complete Time: 16:24 [facility] 05/06 16:00 Order name: O2 Per Protocol; Complete Time: 16:24 [facility] 05/06 16:00 Order name: O2 Sat Monitoring; Complete Time: 16:24 [facility] 05/06 17:37 Order name: Misc. Order: Discontinue IV please; Complete Time: 17:48 [facility] Administered Medications: No medications were administered Disposition: 18:32 Chart complete. Chart complete. [facility] Disposition Summary: 05/06/22 18:33 Discharge Ordered Location: Home [facility] Condition: Stable [facility] Diagnosis - Pain in left arm [facility] Followup: [facility] - With: Private Physician - When: 2 - 3 days - Reason: Recheck today's complaints, Continuance of care, Re-evaluation by your physician Discharge Instructions: - Discharge Summary Sheet [facility] Forms: - Medication Reconciliation Form [facility] - Thank You Letter [facility] - Antibiotic Education [facility] - Prescription Opioid Use [facility] Prescriptions: - orphenadrine citrate 100 mg Oral Tablet Sustained Release - take 1 tablet by ORAL route 2 times per day As needed; 20 tablet; Refills: 0, [facility] Product Selection Permitted Signatures: Dispatcher [employer] Don Carmona PA PA jmm Dibbern, Lauren, RN RN ld1
--- NOTE | 2022-05-06 18:44 | RAD REPORT ---
EXAM DESCRIPTION: US - Extremity Venous Uni Ltd - 05/06/2022 6:35 pm CLINICAL HISTORY: Left arm pain and swelling COMPARISON: None. TECHNIQUE: Real-time sonographic evaluation of the left upper extremity deep venous systems was perf ormed. FINDINGS: Normal compressibility, flow augmentation, phasic flow and spontaneous flow are identified in the left upper extremity deep venous system. No intraluminal filling defects seen. Internal jugul ar and subclavian veins are normal as well. IMPRESSION: No DVT in the left upper extremity.
[2022-05-06 18:46] VITALS: TEMP 97.9
[2022-05-06 18:47] VITALS: BP 126/76; O2SAT 100
--- NOTE | 2022-05-07 13:46 | EKG ---
Test Date: 2022-05-06 Test Time: 16:21:55 Ammonia Technician: HB MEASUREMENT RESULTS: Intervals: Rate: 58 CT: 186 QRSD: 84 QT: 388 QTc: 380 [place]: P: 37 CT: 186 QRS: 2 T: 49 INTERPRETIVE STATEMENTS: Sinus bradycardia Cannot rule out Anterior infarct, age undetermined Abnormal ECG Compared to ECG 09/28/2015 16:40:37 Myocardial infarct finding now present T-wave abnormality no longer present Electronically Signed On 05-07-22 13:44:35 POLICE INSPECTOR by Carlos No
== END 2022-05-06 18:39 | disposition home or self-care (01) ==
LOC: ER 15:43
DX: M79.602 Pain in left arm (principal)
CPT/HCPCS: 36415; 80048; 84484; 85025; 93005; 93971; 99283

== ENCOUNTER → 2023-07-01 | Emergency (ER) | payer BC ==
--- NOTE | 2023-07-01 02:42 | ER ---
Nurse's Notes [facility] Name: Nai Watkins Age: 63 yrs Sex: Female : 1960 Arrival Date: 07/01/2023 Time: 00:24 Bed 4 Private MD: Diagnosis: Headache;Cervical disc disorder with radiculopathy Presentation: 07/01 00:53 Chief complaint: Patient states: headache X3 days. denies prior MOURA history. yassine lg3 recently been weaning off of my Seroquel, started monjouro 1 week ago, have tension in my neck and shoulders and lots of family stress too. i take sumatriptan 100mg twice a day but it doesn't help. Coronavirus screen: Client denies travel out of the [place] in the last 14 days. At this time, the client does not indicate any symptoms associated with coronavirus-19. Ebola Screen: No symptoms or risks identified at this time. Initial Sepsis Screen: Does the patient meet any 2 criteria? No. Patient's initial sepsis screen is negative. Does the patient have a suspected source of infection? No. Patient's initial sepsis screen is negative. Risk Assessment: Do you want to hurt yourself or someone else? Patient reports no desire to harm self or others. Onset of symptoms is unknown. 00:53 Method Of Arrival: Ambulatory lg3 00:53 Acuity: JULES 3 lg3 Triage Assessment: 01:02 Headache History: Denies prior headaches. General: Appears in no apparent distress. lg3 comfortable, Behavior is calm, cooperative. Pain: Complains of pain in head Pain radiates to left trapezius and right trapezius Pain currently is 2 out of 10 on a pain scale. Pain began 2-3 days ago. Also complains of no other associated symptoms. EENT: No deficits noted. No signs and/or symptoms were reported regarding the EENT system. Neuro: No deficits noted. Jamison Agitation-Sedation Scale (RASS): 0 - Alert and Calm Level of Consciousness is awake, alert, obeys commands, Oriented to person, place, time, situation. Cardiovascular: No deficits noted. Denies chest pain, shortness of breath, Capillary refill < 3 seconds Clubbing of nail beds is absent JVD is absent Patient's skin is warm and dry. Respiratory: No deficits noted. Airway is patent Respiratory effort is even, unlabored, Respiratory pattern is regular, symmetrical. GI: No deficits noted. No signs and/or symptoms were reported involving the gastrointestinal system. : No deficits noted. No signs and/or symptoms were reported regarding the genitourinary system. Derm: No deficits noted. No signs and/or symptoms reported regarding the dermatologic system. Skin is intact, is healthy with good turgor, Skin is dry, Skin is normal, Skin temperature is warm. Musculoskeletal: Circulation, motion, and sensation intact. Range of motion: intact in all extremities. Historical: - Allergies: 01:02 No Known Allergies; lg3 - Home Meds: 01:02 sumatriptan [Active]; [place] Carbonate Oral [Active]; levothyroxine oral [Active]; lg3 lovastatin Oral [Active]; - PMHx: 01:02 Bipolar disorder; depressive disorder; diabetes mellitus; Hypercholesterolemia; lg3 hyperthyroidism; - PSHx: 01:02 Lumpectomy of breast; Thyroidectomy; lg3 - Immunization history:: Adult Immunizations up to date, Client reports receiving the 2nd dose of the Covid vaccine, Flu vaccine is up to date. - Social history:: Smoking status: Patient denies any tobacco usage or history of. Patient/guardian denies using alcohol, street drugs. - Family history:: not pertinent. - Hospitalizations: : No recent hospitalization is reported. Screenin:27 [facility] ED Fall Risk Assessment (Adult) History of falling in the last 3 months, ha1 including since admission No falls in past 3 months (0 pts) Confusion or Disorientation No (0 pts) Intoxicated or Sedated No (0 pts) Impaired Gait No (0 pts) Mobility Assist Device Used No (0 pt) Altered Elimination No (0 pt) Score/Fall Risk Level 0 - 2 = Low Risk Oriented to surroundings, Maintained a safe environment, Hourly rounding (assess needs \T\ fall precautionary measures) done. Abuse screen: Denies threats or abuse. Denies injuries from another. Nutritional screening: No deficits noted. Tuberculosis screening: No symptoms or risk factors identified. Assessment: 01:15 General: Appears comfortable, Behavior is calm, cooperative. Pain: Complains of pain in ha1 head Pain does not radiate. Pain currently is 2 out of 10 on a pain scale. Quality of pain is described as pressure, Pain began 2-3 days ago. Neuro: Jamison Agitation-Sedation Scale (RASS): 0 - Alert and Calm Level of Consciousness is awake, alert, obeys commands. Cardiovascular: Capillary refill < 3 seconds Patient's skin is warm and dry. Respiratory: Airway is patent Respiratory effort is even, unlabored, Respiratory pattern is regular, symmetrical. Derm: Skin is pink, warm \T\ dry. Musculoskeletal: Circulation, motion, and sensation intact. Range of motion: intact in all extremities. 01:30 General: Pt states she feels better and her anxiety is gone, pt and spouse state they vc1 would like to just follow up with PCP and have a CT done outpatient. provider notified.. 02:10 Reassessment: Patient and/or family updated on plan of care and expected duration. Pain ha1 level reassessed. Patient is alert, oriented x 3, equal unlabored respirations, skin warm/dry/pink. Vital Signs: 00:53 BP 132 / 84; Pulse 74; Resp 16 S; Temp 97.9; Pulse Ox 97% on R/A; Weight 81.65 kg (R); lg3 Height 5 ft. 4 in. (R); Pain 210; 00:53 Body Mass Index 30.90 (81.65 kg, 162.56 cm) lg3 00:53 Pain Scale: Adult lg3 Jamaal Coma Score: 02:36 Eye Response: spontaneous(4). Motor Response: obeys commands(6). Verbal Response: rn oriented(5). Total: 15. ED Course: 00:28 Patient arrived in ED. jj6 00:34 Tao Parada MD is Attending Physician. rn 01:02 Triage completed. lg3 01:02 Arm band placed on right wrist. lg3 01:11 Patient has correct armband on for positive identification. Bed in low position. Call ha1 light in reach. Side rails up X 1. Adult w/ patient. 01:46 No provider procedures requiring assistance completed. Patient did not have IV access vc1 during this emergency room visit. 02:08 CT Head C Spine In Process Unspecified. EDMS 02:53 Provided Education on: Do not drive after taking gabapentin until you know how it vc1 affects you. Administered Medications: No medications were administered Medication: 01:28 VIS not applicable for this client. ha1 Outcome: 02:42 Discharge ordered by . rn 02:52 Discharged to home ambulatory, with significant other, vc1 02:52 Condition: good 02:52 Discharge instructions given to patient, significant other, Instructed on discharge instructions, follow up and referral plans. medication usage, Demonstrated understanding of instructions, follow-up care, medications, Prescriptions given X 1, 02:54 Patient left the ED. vc1 Signatures: Dispatcher [employer] EDMS Tao Parada MD MD rn Able, Lacie, RN RN 3 Anaya Maldonado6 Svetlana Kline RN RN vc1 Tanvi Zee RN RN ha1
--- NOTE | 2023-07-01 02:42 | EDPHYS ---
Physician Documentation [facility] Name: Nai Watkins Age: 63 yrs Sex: Female : 1960 Arrival Date: 07/01/2023 Time: 00:24 Bed 4 Private MD: ED Physician Tao Parada HPI: 07/01 02:36 This 63 yrs old Female presents to ER via Ambulatory with complaints of rn Headache. 02:36 The patient complains of pain to the Posterior head and right trapezius. The patient rn describes the headache as aching. Onset: The symptoms/episode began/occurred 1 week(s) ago. Associated signs and symptoms: Pertinent negatives: altered mental status, fever, neck stiffness, vision changes, vision loss, vertigo. Severity of symptoms: At its worst the pain was moderate, in the emergency department the pain has improved. Headache History: The patient has had previous headaches and this one is similar to previous episodes, and this one is less severe than previous episodes. The symptoms are alleviated by nothing. the symptoms are aggravated by nothing. The patient has experienced similar episodes in the past. Patient reports headaches for some time, has recently been put on sumatriptan, has seen chiropractor and multiple doctors. Denies head trauma. Reports pain primarily to posterior head and radiates to the right shoulder. No weakness. Worse over the last week. Took Motrin prior to arrival and headache almost resolved. No other focal neurological deficits.. Historical: - Allergies: 01:02 No Known Allergies; lg3 - Home Meds: 01:02 sumatriptan [Active]; [place] Carbonate Oral [Active]; levothyroxine oral [Active]; lg3 lovastatin Oral [Active]; - PMHx: 01:02 Bipolar disorder; depressive disorder; diabetes mellitus; Hypercholesterolemia; lg3 hyperthyroidism; - PSHx: 01:02 Lumpectomy of breast; Thyroidectomy; lg3 - Immunization history:: Adult Immunizations up to date, Client reports receiving the 2nd dose of the Covid vaccine, Flu vaccine is up to date. - Social history:: Smoking status: Patient denies any tobacco usage or history of. Patient/guardian denies using alcohol, street drugs. - Family history:: not pertinent. - Hospitalizations: : No recent hospitalization is reported. ROS: 02:36 Constitutional: Negative for fever, chills, and weight loss, Neck: Negative for injury, rn pain, and swelling, Cardiovascular: Negative for chest pain, palpitations, and edema, Respiratory: Negative for shortness of breath, cough, wheezing, and pleuritic chest pain, Neuro: Negative for weakness, numbness, tingling, and seizure, Exam: 02:36 Constitutional: This is a well developed, well nourished patient who is awake, alert, rn and in no acute distress. Head/Face: Normocephalic, atraumatic. Eyes: Pupils equal round and reactive to light, extra-ocular motions intact. Neck: No masses. No Meningismus. Neuro: Awake and alert, GCS 15, oriented to person, place, time, and situation. Cranial nerves II-XII grossly intact. Motor strength 5/5 in all extremities. Sensory grossly intact. Cerebellar exam normal. Normal gait. Vital Signs: 00:53 BP 132 / 84; Pulse 74; Resp 16 S; Temp 97.9; Pulse Ox 97% on R/A; Weight 81.65 kg (R); lg3 Height 5 ft. 4 in. (R); Pain 2/10; 00:53 Body Mass Index 30.90 (81.65 kg, 162.56 cm) lg3 00:53 Pain Scale: Adult lg3 [place] Coma Score: 02:36 Eye Response: spontaneous(4). Motor Response: obeys commands(6). Verbal Response: rn oriented(5). Total: 15. MDM: 00:34 Patient medically screened. rn 02:36 Differential diagnosis: migraine, neoplasm, tension headache, trigeminal neuralgia, rn vasomotor headache, Radiculopathy, cervicalgia, headache, tension headache. Data reviewed: vital signs, nurses notes, radiologic studies, CT scan, and as a result, I will discharge patient. Counseling: I had a detailed discussion with the patient and/or guardian regarding the historical points, exam findings, and any diagnostic results supporting the discharge/admit diagnosis, radiology results, the need for outpatient follow up, to return to the emergency department if symptoms worsen or persist or if there are any questions or concerns that arise at home. Response to treatment: the patient's symptoms have markedly improved after treatment, and as a result, I will discharge patient. Special discussion: I discussed with the patient/guardian in detail that at this point there is no indication for admission to the hospital. It is understood, however, that if the symptoms persist or worsen the patient needs to return immediately for re-evaluation. ED course: CT head and C-spine show more cervical abnormalities, minor, but could explain her symptoms as her pain is more on right side and shows C3-C6 foraminal narrowing. Patient states headache is much better almost resolved and would like to go home. Will follow-up with [employer] specialist. Will discharge home with gabapentin and return precautions.. 07/01 01:03 Order name: CT Head C Spine rn Administered Medications: No medications were administered Disposition Summary: 07/01/23 02:42 Discharge Ordered Notes: Location: Home rn Problem: an ongoing problem rn Symptoms: have improved rn Condition: Stable rn Diagnosis - Headache rn - Cervical disc disorder with radiculopathy rn Followup: rn - With: Private Physician - When: As needed - Reason: Recheck today's complaints, Re-evaluation by your physician Discharge Instructions: - Discharge Summary Sheet rn - Cervical Radiculopathy rn - General Headache Without Cause rn Forms: - Medication Reconciliation Form rn - Thank You Letter rn - Antibiotic learning consultant - Prescription Opioid Use rn - Patient Portal Instructions rn - Leadership Thank You Letter rn Prescriptions: - gabapentin 300 mg Oral capsule - take 1 capsule ORAL route every 12 hours As needed; 14 capsule; Refills: 0, rn Product Selection Permitted Signatures: Dispatcher [employer] Tao Glass MD MD rn Able, Lacie, RN RN lg3
[2023-07-01 03:52] VITALS: BP 132/84; TEMP 97.9; O2SAT 97
--- NOTE | 2023-07-01 13:21 | RAD REPORT ---
EXAM DESCRIPTION: CT - Head C Spine Mpr Wo Con - 07/01/2023 6:43 am CLINICAL HISTORY: The patient is 63 years old and is Female; HEADACHE TECHNIQUE: Axial computed tomography images of the head/brain and cervical spine without intravenous contrast. Sagittal and coronal reformatted images were created and reviewed. This CT exam was pe rformed using one or more of the following dose reduction techniques: automated exposure control, a djustment of the mA and/or kV according to patient size, and/or use of iterative reconstruction techn ique. COMPARISON: No relevant prior studies available. FINDINGS: Brain: Unremarkable. No hemorrhage. No significant white matter disease. No edema. Ventricles: Unremarkable. No ventriculomegaly. Skull: No acute fracture. Sinuses: Unremarkable as visualized. No acute sinusitis. Mastoid air cells: Unremarkable as visualized. No mastoid effusion. Vertebrae: See below. Discs/spinal canal/neural foramina: Multilevel disc space narrowing with degenerative endplate ch anges. Moderate right neural foraminal narrowing at C3-4. Moderate right neural foraminal narrowing at C5-6. Soft tissues: Unremarkable. IMPRESSION: No acute intracranial abnormality. No acute findings in the cervical spine. Electronically signed by: Devon Morejon MD 07/01/2023 02:22 AM COMPRESSION MOLDING MACHINE SETTER Due to temporary technical issues with the PACS/Fluency reporting system, reports are being signed by the in house radiologist without review as a courtesy to ensure prompt reporting. The interpreting r adiologist is fully responsible for the content of the report.
== END ==
LOC: ER 00:24
DX: R51.9 Headache, unspecified (principal); M50.10 Cervical disc disorder with radiculopathy, unspecified cervical region
CPT/HCPCS: 70450; 72125

== ENCOUNTER 2023-11-27 22:48 | Emergency (ER) | payer BC ==
[2023-11-27] MEDS ORDERED: LORazepam 2 MG/ML VIAL ONE (23:35)
--- NOTE | 2023-11-27 23:58 | ER ---
Nurse's Notes [facility] Name: Nai Watkins Age: 63 yrs Sex: Female : 1960 Arrival Date: 11/27/2023 Time: 22:48 Bed 13 Private MD: Diagnosis: Bipolar disorder, unspecified Presentation: 11/26 22:58 Chief complaint: Patient states: she has bipolar and has been complaint and is worried as6 her calcium levels are high due to her taking lithium. Coronavirus screen: At this time, the client does not indicate any symptoms associated with coronavirus-19. Ebola Screen: No symptoms or risks identified at this time. Initial Sepsis Screen: Does the patient meet any 2 criteria? No. Patient's initial sepsis screen is negative. Does the patient have a suspected source of infection? No. Patient's initial sepsis screen is negative. Risk Assessment: Do you want to hurt yourself or someone else? Patient reports no desire to harm self or others. Onset of symptoms was November 27, 2023. 22:58 Method Of Arrival: Ambulatory as6 22:58 Acuity: JULES 4 as6 Historical: - PMHx: 23:00 Bipolar disorder; depressive disorder; diabetes mellitus; Hypercholesterolemia; as6 hyperthyroidism; - PSHx: 23:00 Lumpectomy of breast; Thyroidectomy; as6 - Immunization history:: Adult Immunizations up to date. - Infectious Disease History:: Denies. - Social history:: Smoking status: Patient denies any tobacco usage or history of. Screenin:00 [facility] ED Fall Risk Assessment (Adult) History of falling in the last 3 months, as6 including since admission No falls in past 3 months (0 pts) Confusion or Disorientation No (0 pts) Intoxicated or Sedated No (0 pts) Impaired Gait No (0 pts) Mobility Assist Device Used No (0 pt) Altered Elimination No (0 pt) Score/Fall Risk Level 0 - 2 = Low Risk Oriented to surroundings, Maintained a safe environment, Educated pt \T\ family on fall prevention, incl call for assistance when getting out of bed, Assessed \T\ reinforced patient's understanding of fall precautions. Abuse screen: Denies threats or abuse. Denies injuries from another. Nutritional screening: No deficits noted. Tuberculosis screening: No symptoms or risk factors identified. Assessment: 23:30 General: Appears in no apparent distress. comfortable, Behavior is calm, cooperative, jj7 appropriate for age. Pain: Denies pain. Neuro: Reports FEELS LIKE SHE WILL HAVE A MANIC EPISODE FROM HER BIPOLAR. STATES SHE IS FEELING FINE AND CALM AT THE MOMENT BUT FEELS IT COMING ON ESPECIALLY WHEN SHE DOESN'T GET MUCH SLEEP. Vital Signs: 23:00 BP 126 / 86; Pulse 107; Resp 18; Temp 97.3; Pulse Ox 100% ; as6 11/27 00:08 BP 122 / 81; Pulse 99; Resp 18; Pulse Ox 99% ; jj7 ED Course: 11/26 22:54 Patient arrived in ED. gm2 22:55 Padmini Varela FNP-C is [facility]. kb 22:55 Arti Gold MD is Attending Physician. kb 22:58 Arm band placed on. as6 22:59 Triage completed. as6 23:17 Ruth Brown, RN is Primary Nurse. jj7 23:30 Patient has correct armband on for positive identification. jj7 23:33 Adult w/ patient. jj7 11/27 00:02 Patient did not have IV access during this emergency room visit. jj7 00:02 No provider procedures requiring assistance completed. jj7 Administered Medications: 11/26 23:42 Drug: LORazepam IM 1 mg IM once Route: IM; Site: right gluteus; jj7 11/27 00:09 Follow up: Response: Marked relief of symptoms jj7 Medication: 11/26 23:30 VIS not applicable for this client. jj7 Outcome: 23:57 Discharge ordered by . kb 11/27 00:07 Discharged to home ambulatory, with family, jj7 Condition: improved Discharge instructions given to patient, family, Instructed on discharge instructions, follow up and referral plans. 00:09 Patient left the ED. jj7 Signatures: Padmini Varela FNP-C FNP-Ckb Slawson, Ashby, RN RN as6 Ruth Brown, CHUCKY RN jj7 Laya Thorne gm2
--- NOTE | 2023-11-27 23:58 | EDPHYS ---
Physician Documentation [facility] Name: Nai Watkins Age: 63 yrs Sex: Female : 1960 Arrival Date: 11/27/2023 Time: 22:48 Bed 13 Private MD: ED Physician Arti Gold HPI: 11/27 00:16 This 63 yrs old Female presents to ER via Ambulatory with complaints of kb Bipolar disorder and is having trouble with medication . pt took the wrong two meds together. 00:16 Pt is a 63 year old female with a history of bipolar disorder that presents for manic kb episode that started 3 days ago. Tonight pt was unable to go to sleep so her brought her in for something to help calm her down. . Historical: - PMHx: 11/26 23:00 Bipolar disorder; depressive disorder; diabetes mellitus; Hypercholesterolemia; as6 hyperthyroidism; - PSHx: 23:00 Lumpectomy of breast; Thyroidectomy; as6 - Immunization history:: Adult Immunizations up to date. - Infectious Disease History:: Denies. - Social history:: Smoking status: Patient denies any tobacco usage or history of. ROS: 11/27 00:14 Constitutional: As per HPI kb Exam: 00:14 Constitutional: This is a well developed, well nourished patient who is awake, alert, kb and in no acute distress. Head/Face: Normocephalic, atraumatic. ENT: Moist Mucous membranes Cardiovascular: Regular rate Respiratory: Respirations even and unlabored. No increased work of breathing. Talking in full sentences Abdomen/GI: Soft, non-tender. No distention Skin: Warm, dry with normal turgor. Normal color. MS/ Extremity: Pulses equal, no cyanosis. Neurovascular intact. Full, normal range of motion. Neuro: Awake and alert, GCS 15, oriented to person, place, time, and situation. Moves all extremities. Normal gait. Vital Signs: 11/26 23:00 BP 126 / 86; Pulse 107; Resp 18; Temp 97.3; Pulse Ox 100% ; as6 11/27 00:08 BP 122 / 81; Pulse 99; Resp 18; Pulse Ox 99% ; jj7 MDM: 11/26 22:55 Patient medically screened. kb 11/27 00:14 Differential diagnosis: anxiety, bipolar, acute stress reaction. Data reviewed: vital kb signs, nurses notes. Test considered but Not performed: Labs: serum labs considered but pt and spouse do not see a need for those. Historians other than the Patient: Spouse/Significant Other: . Counseling: I had a detailed discussion with the patient and/or guardian regarding the historical points, exam findings, and any diagnostic results supporting the discharge/admit diagnosis, the need for outpatient follow up, a family practitioner, to return to the emergency department if symptoms worsen or persist or if there are any questions or concerns that arise at home. ED course: Pt states she is feeling tired now and is ready to go home to get some sleep. Spouse in agreement. They will call psychiatrist first thing in the morning for follow up. Administered Medications: 11/26 23:42 Drug: LORazepam IM 1 mg IM once Route: IM; Site: right gluteus; jj7 11/27 00:09 Follow up: Response: Marked relief of symptoms jj7 Disposition Summary: 11/27/23 23:57 Discharge Ordered Notes: Location: Home kb Condition: Stable kb Diagnosis - Bipolar disorder, unspecified kb Followup: kb - With: Emergency Department - When: As needed - Reason: Worsening of condition Followup: kb - With: Private Physician - When: 2 - 3 days - Reason: Recheck today's complaints, Continuance of care, Re-evaluation by your physician Discharge Instructions: - Discharge Summary Sheet kb - Nery kb - Managing Bipolar Disorder kb Forms: - Medication Reconciliation Form kb - Antibiotic Education kb - Prescription Opioid Use kb - Patient Portal Instructions kb - Leadership Thank You Letter kb Signatures: Padmini Varela FNP-C FNP-Ckb Slawson, Ashby RN RN as6 Ruth Brown RN RN jj7
[2023-11-28 00:27] VITALS: TEMP 97.3
[2023-11-28 00:53] VITALS: BP 122/81; O2SAT 99
== END 2023-11-28 00:09 | disposition home or self-care (01) ==
LOC: ER 22:48
DX: F31.9 Bipolar disorder, unspecified (principal); E11.9 Type 2 diabetes mellitus without complications; E78.00 Pure hypercholesterolemia, unspecified; E05.90 Thyrotoxicosis, unspecified without thyrotoxic crisis or storm
CPT/HCPCS: 96372; 99284